=== PATIENT | male | born 1970 | race African-American/Black ===

== ENCOUNTER 2019-03-31 00:55 | Emergency (ER) | payer BC ==
[~2019-03-31] VITALS: Ht 188 cm; Wt 111.1 kg
--- NOTE | 2019-03-31 01:41 | PHYS DOC ---
Past Medical History Additional Past Medical Histor: Only has one kidney Additional Past Surgical Histo: One kidney Alcohol Use: Occasionally Drug Use: Marijuana Adult General Chief Complaint Chief Complaint: SEXUALLY TRANSMITTED DISEASE HPI HPI Patient is a 48 year old male who presents for STD check and treatment. Patient sexual partner seen in this emergency room concern for STD and treated for STD and patient decided to check treatment also. Patient denies urinary symptom, no discharge, abdominal pain, nausea and vomiting, fever and chills, history of STD or having new sexual partner. Patient's partner believes that he has other sexual partner. Review of Systems Review of Systems Constitutional: Denies fever or chills [] Eyes: Denies change in visual acuity, redness, or eye pain [] HENT: Denies nasal congestion or sore throat [] Respiratory: Denies cough or shortness of breath [] Cardiovascular: No additional information not addressed in HPI [] GI: Denies abdominal pain, nausea, vomiting, bloody stools or diarrhea [] : Denies dysuria or hematuria [] Musculoskeletal: Denies back pain or joint pain [] Integument: Denies rash or skin lesions [] Neurologic: Denies headache, focal weakness or sensory changes [] Endocrine: Denies polyuria or polydipsia [] All other systems were reviewed and found to be within normal limits, except as documented in this note. Current Medications Current Medications Current Medications Medications (Trade) Dose Ordered Sig/Case Start Time Stop Time Status Last Admin Dose Admin Azithromycin (Zithromax) 1,000 mg 1X ONCE 03/31/19 02:00 03/31/19 02:01 DC 03/31/19 02:01 1,000 MG Ceftriaxone Sodium (Rocephin Im) 250 mg 1X ONCE 03/31/19 02:00 03/31/19 02:01 DC 03/31/19 02:01 250 MG Clonidine HCl (Catapres) 0.1 mg STK-MED ONCE 03/31/19 02:28 03/31/19 02:29 DC Allergies Allergies Allergies Coded Allergies Type Severity Reaction Last Updated Verified aspirin Allergy Mild 03/31/19 Yes Physical Exam Physical Exam Constitutional: Well developed, well nourished, no acute distress, non-toxic appearance. [] HENT: Normocephalic, atraumatic Eyes: PERRLA, EOMI, conjunctiva normal, no discharge. [] Neck: Normal range of motion, no tenderness, supple, no stridor. [] Cardiovascular:Heart rate regular rhythm, no murmur [] Lungs & Thorax: Bilateral breath sounds clear to auscultation [] Abdomen: Bowel sounds normal, soft, no tenderness, no masses, no pulsatile masses. [] Skin: Warm, dry, no erythema, no rash. [] Back: No tenderness, no CVA tenderness. [] Extremities: No tenderness, no cyanosis, no clubbing, ROM intact, no edema. [] Neurologic: Alert and oriented X 3, normal motor function, normal sensory function, no focal deficits noted. [] Psychologic: Affect normal, judgement normal, mood normal. [] Current Patient Data Vital Signs Vital Signs Date Time Temp Pulse Resp B/P (MAP) Pulse Ox O2 Delivery O2 Flow Rate FiO2 03/31/19 02:29 78 186/96 03/31/19 01:09 98.1 18 98 Room Air 98.1 EKG EKG [] Radiology/Procedures Radiology/Procedures [] Course & Med Decision Making Course & Med Decision Making Evaluation of patient in ER showed 48-year-old male patient presented to ER for STD exposure. Patient had blood pressure of 200/100 without history of hypertension but states he was told he had elevation of blood pressure another location. Blood pressure was as as high as 190s and 200 and patient treated with clonidine with improvement of blood pressure. Patient was treated with Rocephin and Zithromax in ER. Plan discharge patient home with prescription for Amlodipine and instruction to quit smoking and follow up with primary care physician. Dragon Disclaimer Dragon Disclaimer This electronic medical record was generated, in whole or in part, using a voice recognition dictation system. Departure Departure Impression: Primary Impression: Concern about STD in male without diagnosis Additional Impressions: Elevated blood pressure reading without diagnosis of hypertension Tobacco abuse Tobacco abuse counseling Disposition: HOME, SELF-CARE (at 0250) Condition: STABLE Referrals: NO PCP (PCP) Patient Instructions: Form - Blood Pressure Record Sheet, How to Take Your Blood Pressure, [id number], Managing Your High Blood Pressure, Sexually Transmitted Disease, Smoking Cessation Additional Instructions: Follow-up with her primary care physician in 2 or 3 days regarding elevation of blood pressure Records your blood pressure Return to emergency room visits not getting better Scripts Amlodipine Besylate (AMLODIPINE BESYLATE) 10 Mg Tablet 10 MG PO DAILY, #30 TAB Prov: SUSAN HOLLAND MD 03/31/19 Problem Qualifiers SUSAN HOLLAND MD Mar 31, 2019 01:41
[2019-03-31] MEDS ORDERED: AZITHROMYCIN 250 MG TABLET. PO ONE (02:00)
[2019-03-31] MEDS ORDERED: cefTRIAXone IM 250 MG VIAL IM ONE (02:00)
[2019-03-31] MEDS ORDERED: cloNIDine HCL 0.1 MG TABLET ONE (02:28)
[2019-03-31 02:29] VITALS: BP 186/96
[2019-03-31] MEDS ORDERED: cloNIDine HCL 0.1 MG TABLET PO ONE (02:30)
[2019-03-31] MEDS ORDERED: AMLO10TA8 PO (02:48)
== END 2019-03-31 03:00 | disposition home or self-care (01) ==
LOC: ER 00:55
DX: R03.0 Elevated blood-pressure reading, without diagnosis of hypertension (principal); Z20.2 Contact with and (suspected) exposure to infections with a predominantly sexual mode of transmission; Z71.6 Tobacco abuse counseling; Z88.6 Allergy status to analgesic agent
CPT/HCPCS: 87491; 87591; 96372; 99284; J0696; Q0144

== ENCOUNTER 2020-04-09 07:55 | Emergency (ER) | payer BC ==
[~2020-04-09] VITALS: Ht 188 cm; Wt 125.0 kg
[~2020-04-09 07:55] MED LIST: AMLO10TA8 PO
--- NOTE | 2020-04-09 08:08 | PHYS DOC ---
Past Medical History Additional Past Medical Histor: [facility] Past Surgical History: Colectomy Additional Past Surgical Histo: Nephrectomy, Colostomy with takedown Smoking Status: Current Every Day Smoker Alcohol Use: Occasionally Drug Use: None General Adult EDM: Chief Complaint: DIARRHEA HPI: HPI: 49-year-old male presents with report of diarrhea x4 days. Reports had previously had some nausea and vomiting which has since resolved. Patient also reports concern for possible COVID-19. Patient reports a coworker tested positive yesterday. Work is requiring patient to be tested. Denies any fever or chills. Denies shortness of air or cough. Denies recent travel. Review of Systems: Review of Systems: Constitutional: Denies fever or chills Eyes: Denies redness or eye pain HENT: Denies nasal congestion or sore throat Respiratory: Denies cough or shortness of breath Cardiovascular: Denies chest pain or palpitations GI: Denies abdominal pain; reports diarrhea; reports nausea and vomiting- now resolved : Denies dysuria or hematuria Musculoskeletal: Denies back pain or joint pain Integument: Denies rash or skin lesions Neurologic: Denies headache, focal weakness or sensory changes Complete systems were reviewed and found to be within normal limits, except as d ocumented in this note. Allergies: Allergies: Allergies Coded Allergies Type Severity Reaction Last Updated Verified aspirin Allergy Mild 03/31/19 Yes Physical Exam: PE: Constitutional: Well developed, well nourished, no acute distress, non-toxic appearance HENT: Normocephalic, atraumatic Eyes: Conjunctiva normal, no discharge Neck: Normal range of motion, supple Lungs & Thorax: No respiratory distress, equal chest rise and fall Abdomen: Soft, no tenderness, no guarding/rebound tenderness/distention Skin: Warm, dry, no erythema, no rash Extremities: No tenderness, ROM intact, no edema Neurologic: Alert and oriented X 3, no focal deficits noted Psychologic: Affect normal, judgment normal EKG: EKG: [] Radiology/Procedures: Radiology/Procedures: [] Course & Med Decision Making: Course & Med Decision Making Pertinent Labs and Imaging studies reviewed. (See chart for details) Patient presents with report of diarrhea x 4 days. Reports concern for possible COVID-19. Reports co-worker tested positive yesterday. Denies fever/chills, SOA, or cough. COVID precautions in place. COVID testing pending. Patient stable for discharge with outpatient follow-up with PCP. Discussed findings and plan with patient, who acknowledges understanding and agreement. COVID-19 CRITERIA: The patient was evaluated during the global COVID-19 pandemic, and that diagnosis was suspected/considered upon their initial presentation. Their evaluation, treatment and testing was consistent with current guidelines for patients who present with complaints or symptoms that may be related to COVID-19. Feng Disclaimer: Feng Disclaimer: This electronic medical record was generated, in whole or in part, using a voice recognition dictation system. Departure Departure Impression: Primary Impression: Diarrhea Qualified Codes: R19.7 - Diarrhea, unspecified Additional Impression: Suspected 2019 novel coronavirus infection Disposition: HOME, SELF-CARE Condition: STABLE Referrals: NO PCP (PCP) Patient Instructions: Diarrhea, [id number], Diet for Diarrhea, Adult Additional Instructions: You have been tested for or diagnosed with COVID-19. It is an infection caused by a new type of coronavirus. COVID-19 will cause cold-like or mild flu symptoms in most. It can cause more severe symptoms like problems breathing in some. There is no treatment for COVID-19. The body will clear the infection over time. Self-care will help to ease discomfort. Steps to Take: Self-Care Rest as needed. Healthy habits may help you feel better. Steps include: Choose healthy foods including fruits and vegetables. Drink water throughout the day. Get plenty of sleep each night. If you smoke, try to quit. It may ease breathing. Avoid alcohol. Keep Others Healthy The virus can spread to others. Droplets are released every time you sneeze or cough. The droplets can get into the mouth, nose, or eyes of people near you and lead to infection. To lower the chances of spreading COVID-19 to others: Stay at home until your doctor has said it is safe to leave. If you tested positive this will mean staying isolated until both of the following are true: At least 7 days have passed since the start of illness. You are free of fever for at least 72 hours without the use of medicine. During this time: - Avoid public areas, events, or transportation. Do not return to work or school until your doctor has said it is safe to do so. - Call ahead if you need to go to a medical center. Let them know you may have COVID-19. It will help them guide you where to go. They may also ask you to wear a facemask w hen you come to the office. - If you call for emergency medical services, let them know you may have COVID- 19. While at home: - Try to avoid close contact with others. Stay about 6 feet away. - If possible, spend most of your time in a separate room from others. - Use a face mask if you will be in close contact with others such as sharing a room or vehicle. - Have someone wipe down common surfaces in the home. Use household in store demonstrator every day on areas like doorknobs, counters, or sinks. - Cough or sneeze into a tissue. Throw the tissue away right after use. If a tissue is not available, cough or sneeze into your elbow. - Wash your hands often. Wash them after sneezing or coughing. Use soap and water and wash for at least 20 seconds. Alcohol based hand building cleaner can be used if soap and water is not available. - Do not prepare food for others. Avoid sharing personal items like forks, spoons, or toothbrushes. - Avoid close contact with pets while you are sick. There is no evidence of the virus passing to pets. This is a safety step until more is known about this virus. Isolation can be frustrating. Social interaction can help. Keep in touch with friends and family through phone and tech options. You can still interact with others in your home, just keep a safe distance of about 6 feet. Follow-up: Your doctors office will check in with you to see if there are any changes in your health. You may be asked to keep track of symptoms to share with them. They will also let you know when you are clear to be in public again. Problems to Look Out For: Contact your doctor if your recovery is not going as you expect. Get emergency care if you have problems such as: - Trouble breathing - Nonstop chest pain or pressure - Changes in awareness, confusion, or problems waking - Lips or face have bluish color - Worsening of symptoms If you think you have an emergency, call for emergency medical services right away. As taken from [facility] Justicifation of Admission Dx: Justifications for Admission: Justification of Admission Dx: N/A COVID-19 Assessment: COVID-19 Patient Risks: Age 65 or older: No Sign of co-morbidity: No Exp to person + for COVID: No Exp to PUI: No Travel from affected area: No Lower respiratory symptoms: No Fever: No PPE Use: Full PPE with N95 mask or PAPR: Yes VIOLET العلي DO Apr 09, 2020 08:08
[2020-04-09 08:10] VITALS: BP 179/109
== END 2020-04-09 08:35 | disposition home or self-care (01) ==
LOC: ER 07:55
DX: R19.7 Diarrhea, unspecified (principal); Z20.828 Contact with and (suspected) exposure to other viral communicable diseases; F17.200 Nicotine dependence, unspecified, uncomplicated; Z90.49 Acquired absence of other specified parts of digestive tract; Z93.3 Colostomy status; Z90.5 Acquired absence of kidney; Z88.6 Allergy status to analgesic agent
CPT/HCPCS: 99283; U0003